=== PATIENT | male | born 1980 | race Caucasian/White ===

== ENCOUNTER 2018-12-05 09:52 | Emergency (ER) | payer OTHER ==
[2018-12-05] MEDS: KETOROLAC 60 MG INJ IM (10:57)
[2018-12-05] MEDS: HYDROCODONE/APAP (5/325) TAB PO (11:06)
== END 2018-12-05 11:08 | disposition home or self-care (01) ==
LOC: FTE 09:52
DX: S92.002D Unspecified fracture of left calcaneus, subsequent encounter for fracture with routine healing (principal); F17.210 Nicotine dependence, cigarettes, uncomplicated; X58.XXXD Exposure to other specified factors, subsequent encounter
CPT/HCPCS: 99283; Z7502